=== PATIENT | male | born 1995 | race Caucasian/White ===

== ENCOUNTER 2017-09-14 09:48 | Emergency (ER) | payer MEDICAID ==
[~2017-09-14] VITALS: Ht 190.5 cm; Wt 102.7 kg
[2017-09-14 11:15] VITALS: BP 138/81
== END 2017-09-14 11:15 | disposition home or self-care (01) ==
LOC: ED 09:48
DX: S09.90XA Unspecified injury of head, initial encounter (principal); R03.0 Elevated blood-pressure reading, without diagnosis of hypertension; J45.909 Unspecified asthma, uncomplicated; V89.9XXA Person injured in unspecified vehicle accident, initial encounter; Y93.55 Activity, bike riding; Y92.488 Other paved roadways as the place of occurrence of the external cause; Y99.8 Other external cause status

== ENCOUNTER 2018-05-12 05:52 | Emergency (ER) | payer SELFPAY ==
[~2018-05-12] VITALS: Ht 190.5 cm; Wt 101.6 kg
[2018-05-12 06:01] VITALS: Ht 190.5 cm; Wt 101.6 kg
[2018-05-12 08:03] VITALS: BP 128/72
== END 2018-05-12 08:03 | disposition home or self-care (01) ==
LOC: ED 05:52
DX: J06.9 Acute upper respiratory infection, unspecified (principal)
CPT/HCPCS: Q0092